=== PATIENT | male | born 1955 | race Caucasian/White ===

== ENCOUNTER → 2019-03-10 | Outpatient (CLI) | payer OTHER | LOC: M.LAB 05:22 | DX: E87.6 Hypokalemia (principal) ==

== ENCOUNTER 2021-01-05 12:08 | Emergency (ER) | payer MEDICARE ==
[~2021-01-05] VITALS: Ht 182.9 cm; Wt 156.5 kg
[2021-01-05] MEDS ORDERED: HYDROCODON-ACE1 EAC7 PO (13:27)
[2021-01-05 14:13] VITALS: BP 145/85
== END 2021-01-05 13:43 | disposition home or self-care (01) ==
LOC: M.ERS 12:08
DX: M25.571 Pain in right ankle and joints of right foot (principal); I48.91 Unspecified atrial fibrillation; I10 Essential (primary) hypertension; Z95.0 Presence of cardiac pacemaker; W18.30XA Fall on same level, unspecified, initial encounter; Y93.89 Activity, other specified; Y92.89 Other specified places as the place of occurrence of the external cause; Y99.9 Unspecified external cause status

== ENCOUNTER → 2021-07-27 | Outpatient (CLI) | payer MEDICARE ==
[~2021-07-27] MED LIST: ADVIL200 M3 PO; CARVEDILOL25 MG PO; DILTIAZEM 24HR180 M1 PO; FUROSEMIDE 20 M20 MG PO; HYDROCODON-ACE1 EAC7 PO; XARELTO20 MG PO; ZOCOR20 MG PO
[2021-07-27 10:20] LABS: ABSOLUTE BASOPHILS 0.1 thou/uL (0.0-0.2); ABSOLUTE EOSINOPHILS 0.2 thou/uL (0.0-0.7); ABSOLUTE LYMPHOCYTES 1.5 thou/uL (0.8-5.3); ABSOLUTE MONOCYTES 1.1 thou/uL (0.0-1.2); ABSOLUTE NEUTROPHILS 9.9 thou/uL (1.6-8.1); EOSINOPHILS 1.6 %; HEMATOCRIT 42.2 % (42.0-52.0); HEMOGLOBIN 14.2 gm/dL (14.0-18.0); LYMPHOCYTES 11.7 %; MCH 31.9 pg (26.0-34.0); MCHC 33.6 g/dL (28.0-37.0); MCV 94.9 fL (80.0-100.0); MONOCYTES 8.5 %; NUCLEATED RBCS 0 /100WBC; PLATELET COUNT* 349 thou/uL (150-400); POLYS 77.2 %; RBC 4.45 mil/uL (4.50-6.00); RDW-CV 13.9 % (10.5-14.5); WBC 12.9 thou/uL (4.0-11.0)
[2021-07-27 10:30] LABS: URINE BILIRUBIN NEGATIVE (Negative); URINE BLOOD NEGATIVE (Negative); URINE CLARITY CLEAR; URINE COLOR STRAW; URINE GLUCOSE-RANDOM NEGATIVE (Negative); URINE KETONES TRACE (Negative); URINE LEUKOCYTES-REFLEX NEGATIVE (Negative); URINE NITRITE-REFLEX NEGATIVE (Negative); URINE PROTEIN TRACE (Negative); URINE SPECIFIC GRAVITY >= 1.030 (1.005-1.030); URINE UROBILINOGEN 0.2 E.U./dl (0.2-1.0)
[2021-07-27 11:19] LABS: ALBUMIN 3.9 g/dL (3.4-5.0); CALCIUM 8.9 mg/dL (8.5-10.1); CREATININE 1.4 mg/dL (0.6-1.3); POTASSIUM 4.5 mmol/L (3.5-5.1); TOTAL BILIRUBIN 0.9 mg/dL (<0.1-1.0); TOTAL PROTEIN 6.5 g/dL (6.4-8.2)
[2021-07-27 11:27] LABS: INR 1.2; PROTIME 12.7 Seconds (9.20-11.50)
--- NOTE | 2021-07-27 14:23 | EKG ---
[place] [address] ELECTROCARDIOGRAM REPORT Name: RADHA FORDE Room: [facility]#: [id number] Admission: 07/27/21 Attend Phys: Andrew Navas, Discharge: Date of : 51 Date of Service: 07/27/21 0957 Report #: [id number] THIS REPORT FOR: //name// [facility] Test Date: 2021-07-27 Test Time: 09:57:18 Pat Name: RADHA FORDE Department: Room: Gender: M Quill Stripper: Charles KENNEDY RN : 1955 Requested By: Andrew Navas Order Number: [id number] Nick MD: Mikey Fuller Measurements Intervals [place] Rate: 75 P: IN: QRS: -51 QRSD: 134 T: 124 QT: 412 QTc: 461 Interpretive Statements Atrial fibrillation Intermittent left bundle branch block Baseline wander in lead(s) V1,V2 Compared to ECG 06/23/2007 13:57:17 Left bundle-branch block now present Sinus rhythm no longer present First degree AV block no longer present Electronically Signed On 07-27-2021 14:23:14 [employer] by Mikey Fuller [email or web address] <ELECTRONICALLY SIGNED> By: Mikey Fuller MD, FAC 07/27/21 1423 0957 0957 Mikey Fuller MD, [facility] /EPI
== END ==
LOC: M.LAB 08:49
PROVIDERS: ATTEND Orthopaedic Surgery
DX: Z01.818 Encounter for other preprocedural examination (principal); I48.91 Unspecified atrial fibrillation; I44.7 Left bundle-branch block, unspecified

== ENCOUNTER → 2021-08-01 | Outpatient (CLI) | payer MEDICARE | LOC: M.LAB 09:47 | PROVIDERS: ATTEND Orthopaedic Surgery | DX: Z01.812 Encounter for preprocedural laboratory examination (principal); Z20.822 Contact with and (suspected) exposure to COVID-19 ==

== ENCOUNTER 2021-08-02 06:46 | Inpatient (IN) | payer MEDICARE ==
[~2021-08-02] VITALS: Ht 182.9 cm; Wt 149.2 kg
[2021-08-02 07:50] VITALS: BP 140/89
[2021-08-02 16:00] VITALS: BP 114/70
--- NOTE | 2021-08-02 17:55 | NUR ---
PT WAS BROUGHT UP TO THE FLOOR ABOUT 1500. PT WAS BROUGHT UP BY BED. PT ADMITTED TO THE UNIT AND INTRODUCED TO ALL STAFF AND HOW REMOTES AND CALL LIGHTS WORK. PT HAS SALINE LOCK IN HIS LEFT FOREARM WITH 1/2NS AT 75CC/HR. PT DENIES PAIN. WILL PLACE PT IN CPM THIS PM AFTER SUPPER IS COMPLETED. WILL CONTINUE TO MONITOR PLAN OF CARE.
[2021-08-02 19:40] VITALS: BP 114/75
[2021-08-03] VITALS: BP 122/74
[2021-08-03 04:20] VITALS: BP 126/60
--- NOTE | 2021-08-03 04:53 | NUR ---
PT A&OX4, VSS ON ROOM AIR WHILE AWAKE/CPAP WHILE SLEEPING, MED/SURG STATUS, IV FLUIDS INFUSING ORDERED, REPOSITIONED Q2H, HEMOVAC IN PLACE, CPM THERAPY ORDERED. PRN PAIN MED REQUESTED AND GIVEN ORDERED.
[2021-08-03 05:31] LABS: HEMATOCRIT 38.2 % (42.0-52.0)
--- NOTE | 2021-08-03 07:01 | NUR ---
NO OT AT THIS TIME, WILL DEFER TO PT
[2021-08-03 08:07] VITALS: BP 121/58
--- NOTE | 2021-08-03 10:04 | NUR ---
ASSUMED CARE OF PT THIS AM AROUND 0715- M/S STATUS IN PLACE ORDERED- PT A&O X4- CONT OF B/B- SBA ASSIST WITH TRANSFERS FOR SAFETY- LCTA, RESP EVEN AND UN-LABORED- VSS, O2 SAT 96% ON RA- ABD SOFT/OBESE/NON-TEDNER, BS X4 QUADS- LAST BM REPORTED X2 DAYS AGO- IV NOTED TO LEFT FA INTACT, IVF INFUSSING PRESCIBED; IV ABT GIVEN PRESCRIBED- GOOD PO INTAKE NOTED THIS AM WITH BREAKFAST- RIGHT KNEE HEMOVAC IN PLACE WITH NO DRAINGE THIS AM AT TIME OF ASSESSMENT, DRAIN REMOVED WITH GAUZE TRANSPARENT DRESSING PLACED ORDERED- PT REPORTS PAIN 4/10, PRN TORADOL GIVEN THIS AM AT 0953- RIGHT KNEE WITH GEORGE WRAP AND POLAR PACK IN PLACE- CPM COMPLETED X2 HOURS THIS AM- CALL LIGHT AND PERSONAL BELONGINGS WITH IN REACH- ALL NEEDS MET AT THIS TIME
--- NOTE | 2021-08-03 15:46 | NUR ---
Pt is admitted to the hospital on 08/02/21 for Right TKR. Pt is alert and oriented x4. Pt has a rollinator and HEP is to provide pt a CPM. Pt lives in a house with his with 3 steps to enter. Pt has no hx of HH/SNF/DME. Pt fills his prescriptions at [facility] on [address] in [place]. Pt saw his PCP last week. Pt has no preference for a home health agency. Referred pt to [facility] and they have accepted. Anticipate discharge tommorow. Cm to continue to follow for discharge planning.
[2021-08-03 16:00] VITALS: BP 116/83
[2021-08-03 19:32] VITALS: BP 117/72
[2021-08-04 02:13] VITALS: BP 127/78
[2021-08-04 04:13] LABS: HEMATOCRIT 36.9 % (42.0-52.0); HEMOGLOBIN 12.5 gm/dL (14.0-18.0)
--- NOTE | 2021-08-04 04:43 | NUR ---
PT A&OX4, VSS ON ROOM AIR/CPAP WHILE SLEEPING, MED/SURG STATUS. IV FLUIDS SALINE LOCKED. REPOSITIONED Q2H, CPM THERAPY ORDERED. PRN PO PAIN MEDS REQUESTED AND GIVEN ORDERED. DISCONTINUED HEMOVAC SITE DRESSING SATURATED, DRSG CHANGED AT APPROX 0215. PT SLEEPING WELL, WILL CONTINUE TO MONITOR.
[2021-08-04 08:00] VITALS: BP 124/60
[2021-08-04 08:52] VITALS: BP 127/78
[2021-08-04 12:00] VITALS: BP 132/67
--- NOTE | 2021-08-04 15:24 | NUR ---
Discharge orders written today - however when reviewing notes - pt ambulated 15 steps and was Mod Assist for transfers. Met with pt to discuss and he admits he didn't do well in therapy and likely would not do well at home at this time. Pt is agreeable to a referral to SNF - [facility]. Currently waiting on OT eval to be completed. Pt has been referred and accepted to [facility] if able to progress well enough tomorrow to discharge home. CM to continue to follow for discharge planning.
[2021-08-04 16:00] VITALS: BP 120/68
[2021-08-04 19:55] VITALS: BP 104/59
--- NOTE | 2021-08-05 05:20 | NUR ---
PATIENT HAS REMAINED ALERT AND ORIENTED X 4 THROUGHOUT THE SHIFT AND RESTING QUIETLY ON HOURLY ROUNDS. MEDICATED AT SHIFT CHANGE AND X 2 DURING THE NIGHT. LAST PRIOR TO APPLICATION OF CPM AT 0500. DRESSING RIGHT KNEE CLEAN AND DRY WITH POLAR CARE RIGHT KNEE AND BILAT FOOT PUMPS AND CORINE HOSE LEFT KNEE. TURNED FOR COMFORT AND DEBBIE-CARE. URINAL INDEPENDENTLY. ATTEMPTED BEDPAN. PASSING GAS. NO BM. VITAL SIGNS STABLE. FALL PRECAUTIONS IN PLACE. CONTINUE TO MONITOR.
[2021-08-05 05:52] VITALS: BP 130/75
[2021-08-05 08:00] VITALS: BP 129/66
--- NOTE | 2021-08-05 12:32 | NUR ---
CM FAXED OT EVALS TO [facility] [phone]. LFT VM FOR AURY WITH [employer] RE INSUR AUTH.
--- NOTE | 2021-08-05 16:58 | NUR ---
PT USED CPM X 3 TODAY-TOLERATED WELL. COMPLAINED OF PAIN TO RIGHT KNEE-TREATED WITH PRN OXY WITH RELIEF. WORKED WITH THERAPIES TODAY-TOLERATED FAIR. AWAITING INSURANCE AUTH FOR DC. REMAINED AT BEDSIDE THROUGHOUT SHIFT AND UPDATED ON CURRENT PLAN OF CARE. AM ASSESSMENT CHARTED. MEDS PER MAR. CALL LIGHT WITHIN REACH. HOURLY ROUNDING OBSERVED. BED IN LOW POSITION. WILL CONTINUE PLAN OF CARE.
[2021-08-05 17:00] VITALS: BP 103/61
[2021-08-05 20:00] VITALS: BP 107/65
[2021-08-06 04:00] VITALS: BP 124/48
--- NOTE | 2021-08-06 05:33 | NUR ---
ASSUMED CARE AT 1930. PATIENT RESTED IN BED THROUGH SHIFT. TAKES PILLS WITHOUT DIFF. MEDICATED FOR PAIN TWICE, SEE AUG. DRESSING C/D/I TO KNEE AND DRAIN SITE. VOIDS PER URINAL. WORE OWN CPAP ALL NOC. POLAR PACK IN PLACE. SALINE LOCK INTACT. NO RESULTS FROM STOOL SOFTENERS. STARTED CPM AT ABOUT 0515. ABLE TO ADJUST CONTROLS AND VERBALIZES UNDERSTANDING OF GOALS WITH CPM. HOURLY ROUNDS CONTINUE. CALL LITE IN REACH.
[2021-08-06 08:00] VITALS: BP 120/77
[2021-08-06 13:24] VITALS: BP 104/68
[2021-08-06 17:17] VITALS: BP 114/66
[2021-08-06 20:00] VITALS: BP 109/60
[2021-08-07 04:00] VITALS: BP 104/76
--- NOTE | 2021-08-07 04:43 | NUR ---
ASSUMED PT CARE AT 1930. PT ALERT AND ORIENTED X4, POLITE AND COOPERATIVE WITH CARES. PT IN BED AT SHIFT CHANGE. TAKES PILLS WITH WATER WITHOUT DIFFICULTY. PRN PAIN MEDICATION AT HS FOR KNEE PAIN. DRESSING TO RIGHT KNEE C/D/I. VOIDS PER URINAL. WORE HOME CPAP ALL NOC. POLAR PACK TO R KNEE IN PLACE. SALINE LOCK INTACT. CALL LIGHT IN REACH, BED ALARM ON FOR SAFETY. HOURLY ROUNDING IN PROGRESS, WILL CONTINUE TO MONITOR.
[2021-08-07 07:50] VITALS: BP 116/83
[2021-08-07 16:00] VITALS: BP 116/63
[2021-08-07 19:46] VITALS: BP 106/50
[2021-08-07 23:06] VITALS: BP 95/56
--- NOTE | 2021-08-08 03:58 | NUR ---
PT A&OX4, VSS ON ROOM AIR, IV SALINE LOCKED, UP WITH ASSIST. CPM THERAPY ORDERED. PRN PO PAIN MED REQUESTED AND GIVEN ORDERED. PT SLEEPING WELL, WILL CONTINUE TO MONITOR.
[2021-08-08 08:00] VITALS: BP 118/62
[2021-08-08 12:35] VITALS: BP 109/57
--- NOTE | 2021-08-08 15:40 | NUR ---
Pt accepted to [facility]. 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 Faxed discharge summary, updated therapy notes, DA124 Code: [id number], and discharge medication list to [facility]. Reminded staff CPM machine does not go with pt to facility and requested they place it in the dirty utlity room per BJ (orthopedic shoe maker). Pt in agreement with discharge plan and he was calling .
--- NOTE | 2021-08-09 10:57 | OP ---
[address] [address] OPERATIVE REPORT Name: RADHA FORDE Room: [address]#: [id number] Admission: 08/02/21 Attend Phys: Pieter Jacobs Discharge: 08/08/21 Date of : 51 Report #: [id number] THIS REPORT FOR: cc: Mauro Johnson MD, Louis A. MD Greiner, Robert F. II DO ~ DATE OF SURGERY: 08/02/2021 PREOPERATIVE DIAGNOSIS: Right knee osteoarthritis. POSTOPERATIVE DIAGNOSIS: Right knee osteoarthritis. PROCEDURE: Right total knee arthroplasty. SURGEON: Andrew Navas II, DO DOG BATHER: JOSÉ MANUEL Guillaume. ANESTHESIA: Per operative record. ESTIMATED BLOOD LOSS: 50 mL. ANTIBIOTICS: Per operative record. DRAINS: Medium Hemovac. COMPLICATIONS: None. CONDITION: The patient stable to recovery room. DESCRIPTION OF PROCEDURE: The patient was taken to the operative suite, placed supine on the operating table, given appropriate anesthesia. A well-padded tourniquet applied to the upper thigh, which was inflated to 300 mmHg after gravity exsanguination. The operative knee was sterilely prepped and draped. Surgery began by midline incision, was carried down to subcutaneous tissues. A medial parapatellar arthrotomy was performed, carried down to bone. Patella was everted and excess soft tissues and osteophytes were removed from the femur and tibia. Two pins were placed in the femur and tibia in appropriate fashion and the [employer] robotic-assisted arrays were tightened into position. The knee was then registered to the [employer] robotic software in appropriate fashion. The robotic handpiece was then activated and utilized for performing our guide holes for the femur and tibia. Femoral cutting block was then applied, checked with a [employer] robotic handpiece for appropriate alignment. Appropriate cut was made to the femur. The 4-in-1 cutting block was then applied, checked with the [employer] robotic assistance for appropriate cup position and appropriate cuts were made. Excess bone was removed. The tibia was then exposed[place] [address] OPERATIVE REPORT Name: RADHA FORDE Room: [address] [place] .R.#: [id number] Admission: 08/02/21 Attend Phys: Pieter Jacobs Discharge: 08/08/21 Date of : 51 Report #: [id number] removed. Retractor was placed on collateral ligaments. The tibial cutting guide was then applied, checked with the [employer] robotic handpiece for appropriate alignment and slope and appropriate cut was made. Tibial bone was removed. Tibial baseplate was then applied, checked for rotational alignment with the drop mely and pinned in appropriate position. Femur was then applied and box cut was reamed. This was then trialed with appropriate spacer, which showed excellent fit and fill and excellent stability of knee through all range of motion. The patella was reamed in appropriate fashion, sized to appropriate size. Three peg holes were drilled and it was then trialed and showed excellent flexion and extension, excellent tracking of patella within the groove. These trials were removed. The tibia was punched in appropriate fashion. Bone ends were cleansed with Pulsavac irrigation and cement was applied to final implants. These were malleted into position and held the knee in extension and compressed to allow cement to cure. After it cured, excess was removed using [place] and osteotome. Wound copiously irrigated and the final spacer was malleted into position. Tourniquet was deflated. Hemostasis was maintained with electrocautery. Pain cocktail were injected. Capsule was closed with #2 FiberWire and 1 Vicryl in oroenu-by-bpkmi fashion. Skin was closed with 2-0 Vicryl and running 3-0 Monocryl. Dermabond dressing applied. Gavin wrap and PolarCare applied. The patient transported to recovery in stable condition. Counts were correct throughout the procedure. <ELECTRONICALLY SIGNED> By: Andrew Navas II, DO 08/09/21 1057 0640 [id number] Navas II, DO /nt
== END 2021-08-08 19:53 | DRG 470 ==
LOC: M.ORTHSURG 06:46 → M.2W 06:49 → M.TBA 06:49 → M.ORTHSURG 06:57 → M.2W 15:24
PROVIDERS: Orthopaedic Surgery; ADMIT Internal Medicine; ATTEND Internal Medicine
PROC: 8E0Y0CZ Robotic Assisted Procedure of Lower Extremity, Open Approach (ICD-10-PCS; principal; 2021-08-02)
PROC: 0SRC0J9 Replacement of Right Knee Joint with Synthetic Substitute, Cemented, Open Approach (ICD-10-PCS; principal; 2021-08-02)
PROC: 5A09357 Assistance with Respiratory Ventilation, Less than 24 Consecutive Hours, Continuous Positive Airway Pressure (ICD-10-PCS; 2021-08-02)
PROC: 5A09357 Assistance with Respiratory Ventilation, Less than 24 Consecutive Hours, Continuous Positive Airway Pressure (ICD-10-PCS; 2021-08-03)
PROC: 5A09357 Assistance with Respiratory Ventilation, Less than 24 Consecutive Hours, Continuous Positive Airway Pressure (ICD-10-PCS; 2021-08-07)
DX: M17.11 Unilateral primary osteoarthritis, right knee (principal); Z68.41 Body mass index [BMI] 40.0-44.9, adult; E66.9 Obesity, unspecified; E78.5 Hyperlipidemia, unspecified; I10 Essential (primary) hypertension; K59.00 Constipation, unspecified